=== PATIENT | female | born 1955 | race American Indian/Alaskan Native ===

== ENCOUNTER 2017-09-27 20:04 | Emergency (ER) | payer MEDICAID ==
[2017-09-27 20:58] VITALS: RESP 18
--- NOTE | 2017-09-27 21:09 | ED PDOC ---
Arrival/HPI - General Chief Complaint: ENT Problem Time Seen by Provider: 09/27/17 20:11 Historian: Patient - History of Present Illness Narrative History of Present Illness (Text): 09/27/17 21:00 Batool De La Cruz is a 62 year old female, whose past medical history includes hypertension, renal insufficiency, and diabetes, who presents to the ED complaining of fever and chills for the past few days. Patient also reports associated severe sore throat discomfort with difficulty swallowing today. Patient denies any shortness of breath, chest pain, nausea, vomiting, diarrhea, neck pain, headache, dizziness, or any other complaints. Time/Duration: < week (few days) Symptom Onset: Gradual Symptom Course: Unchanged Severity Level: Severe Activities at Onset: Light Context: Home Past Medical History - Provider Review Nursing Documentation Reviewed: Yes - Cardiac Hx Cardiac Disorders: Yes Hx Hypertension: Yes - Pulmonary Hx Respiratory Disorders: No - Neurological Hx Neurological Disorder: Yes Hx Transient Ischemic Attacks (TIA): Yes - HEENT Hx HEENT Disorder: Yes Hx Blind: Yes Hx Glaucoma: Yes - Renal Hx Renal Disorder: Yes Hx Renal Failure: Yes - Endocrine/Metabolic Hx Endocrine Disorders: Yes Hx Diabetes Mellitus Type 2: Yes - Hematological/Oncological Hx Blood Disorders: No - Integumentary Hx Dermatological Disorder: No - Musculoskeletal/Rheumatological Hx Musculoskeletal Disorders: Yes Hx Arthritis: Yes - Gastrointestinal Hx Gastrointestinal Disorders: No - Genitourinary/Gynecological Hx Genitourinary Disorders: No - Psychiatric Hx Psychophysiologic Disorder: No Hx Substance Use: No - Surgical History Hx Cholecystectomy: Yes Hx Eye Surgery: Yes Hx Hysterectomy: Yes Family/Social History - Physician Review Nursing Documentation Reviewed: Yes Family/Social History: Unknown Family HX Smoking Status: Never Smoked Hx Alcohol Use: No Hx Substance Use: No Allergies/Home Meds Allergies/Adverse Reactions: Allergies labetalol Allergy (Verified 09/27/17 20:15) NAUSEA Home Medications: Home Meds Medication Instructions Recorded Confirmed Carvedilol [Coreg] 1 tab PO DAILY 09/27/17 09/27/17 Chlorthalidone [Hygroton] 25 mg PO DAILY 09/27/17 09/27/17 Cholecalciferol (Vitamin D3) 1 tab PO DAILY 09/27/17 09/27/17 [Vitamin D3] Dorzolamide HCl/Timolol Maleat 2 drop LEFTEYE DAILY 09/27/17 09/27/17 [Dorzolamide-Timolol Eye Drops] Insulin Glargine,Hum.rec.anlog 20 unit SC DAILY 09/27/17 09/27/17 [Toujeo Solostar] Insulin Lispro [humALOG] See Protocol SC TID 09/27/17 09/27/17 Losartan [Cozaar] 100 mg PO DAILY 09/27/17 09/27/17 Oseltamivir Phosphate [Tamiflu] 1 cap PO DAILY 09/27/17 09/27/17 Sevelamer Carbonate [Renvela] 1 tab PO DAILY 09/27/17 09/27/17 Simvastatin [Zocor] 20 mg PO DAILY 09/27/17 09/27/17 Spironolactone [Aldactone] 100 mg PO DAILY 09/27/17 09/27/17 amLODIPine [Norvasc] 10 mg PO DAILY 09/27/17 09/27/17 Review of Systems - Physician Review All systems were reviewed & negative as marked: Yes - Review of Systems Constitutional: Fevers, Other (+chills) Eyes: Normal ENT: Sore Throat Respiratory: Normal. absent: SOB, Cough Cardiovascular: Normal. absent: Chest Pain Gastrointestinal: Normal. absent: Abdominal Pain, Diarrhea, Nausea, Vomiting Genitourinary Female: Normal. absent: Dysuria, Frequency, Hematuria, Urine Output Changes Musculoskeletal: Normal. absent: Back Pain, Neck Pain Skin: Normal. absent: Rash Neurological: Normal. absent: Headache, Dizziness Endocrine: Normal Hemo/Lymphatic: Normal Psychiatric: Normal Physical Exam Vital Signs Reviewed: Yes Vital Signs Temp Pulse Resp BP Pulse Ox 09/27/17 23:32 98.9 F 89 18 166/93 H 98 09/27/17 22:49 84 18 174/97 H 97 09/27/17 20:57 90 18 184/101 H 99 09/27/17 20:35 100.5 F H 95 H 20 200/94 H 98 09/27/17 20:22 100.5 F H 95 H 20 200/94 H 98 Temperature: Febrile Blood Pressure: Hypertensive Pulse: Regular Respiratory Rate: Normal Appearance: Positive for: Well-Appearing, Non-Toxic, Comfortable Pain Distress: None Mental Status: Positive for: Alert and Oriented X 3 - Systems Exam Head: Present: Atraumatic, Normocephalic Pupils: Present: PERRL, Sluggish, Non-Reactive, Pinpoint, Other Extroacular Muscles: Present: EOMI Conjunctiva: Present: Normal Ears: Present: Normal, NORMAL TM, Normal Canal. No: Erythema, TM Bulging, Fluid Mouth: Present: Moist Mucous Membranes Pharnyx: Present: ERYTHEMA (Minimal erythema to posterior pharynx). No: EXUDATE , TONSILS ENLARGED, Peritonsilar Swelling, Uvular Deviation, Muffled/Hoarse Voice, Strider, Soft Palate/Uvular Edema Nose (External): Present: Atraumatic Nose (Internal): Present: Normal Inspection Neck: Present: Normal Range of Motion. No: Meningeal Signs, MIDLINE TENDERNESS Respiratory/Chest: Present: Clear to Auscultation, Good Air Exchange. No: Respiratory Distress, Accessory Muscle Use Cardiovascular: Present: Regular Rate and Rhythm, Normal S1, S2. No: Murmurs Abdomen: Present: Normal Bowel Sounds. No: Tenderness, Distention, Peritoneal Signs Back: Present: Normal Inspection Upper Extremity: Present: Normal Inspection. No: Cyanosis, Edema Lower Extremity: Present: Normal Inspection. No: Edema Neurological: Present: GCS=15, CN II-XII Intact, Speech Normal Skin: Present: Warm, Dry, Normal Color. No: Rashes Psychiatric: Present: Alert, Oriented x 3, Normal Insight, Normal Concentration Medical Decision Making ED Course and Treatment: 09/27/17 21:00 Impression: 62 year old female c/o fever and chills for the past few days, severe sore throat discomfort today. Plan: -- CT Neck Soft Tissue -- EKG -- CXR -- Labs, VBG, blood cultures -- UA, urine cultures -- IV fluids -- Solu-medrol -- Cleocin -- Reassess and disposition 09/27/17 21:39 Reviewed EKG, NSR at 86 bpm. LVH. Non-specific ST/T wave changes. 09/27/17 22:35 Chest X-ray reviewed, shows no acute processes. 09/27/17 22:58 CT Neck Soft Tissue shows: Nasopharynx: There is mild swelling of the soft tissues of the posterior nasopharynx. Oropharynx: No significant tonsillar enlargement. Hypopharynx: No acute abnormality. Larynx: Normal epiglottis. Trachea: No acute abnormality. Retropharyngeal space: No acute abnormality. Submandibular/parotid glands: Glands are normal in size. Thyroid: No enlarged or calcified nodules. Bones/joints: Spondylosis is visualized at multiple cervical levels. Soft tissues: No acute swelling of the subcutaneous tissues of the neck. Vasculature: Suboptimal evaluation without intravenous contrast. Lymph nodes: Scattered small cervical lymph nodes are identified, without significant cervical lymphadenopathy. Sinuses: There is mild mucosal thickening and scattered ethmoid air cells. A mucus retention cyst or polyp is visualized within the right maxillary sinus. There is mild thickening of the left frontal sinus and left sphenoid sinus. Lung apices: Unremarkable as visualized. IMPRESSION: 1. There is mild swelling of the soft tissues of the posterior nasopharynx. Clinical correlation is recommended. 2. Paranasal sinus disease is noted above. 3. Incidental/non-acute findings are described above. 09/27/17 23:15 On re-evaluation, patient feels better and is in no acute distress. I have discussed the results and plan with the patient, who expresses understanding. Patient in agreement with plan to be discharged home. Patient is stable for discharge. Patient was instructed to follow up with physician or return if symptoms worsen or new concerning symptoms arise. - Lab Interpretations Lab Results: 09/27/17 21:20 09/27/17 21:20 Lab Results 09/27/17 21:20: Sodium 138, Chloride 104, Potassium 4.4, Carbon Dioxide 22, Anion Gap 17, BUN 30 H, Creatinine 3.1 H, Est GFR ( Amer) 19, Est GFR ( Non-Af Amer) 15, Random Glucose 278 H, Calcium 9.1, Total Bilirubin 0.3, AST 21 , ALT 30, Alkaline Phosphatase 131 H, Total Protein 8.4 H, Albumin 4.1, Globulin 4.3, Albumin/Globulin Ratio 1.0 L 09/27/17 21:20: pO2 46, VBG pH 7.35, VBG pCO2 42.0, VBG HCO3 23.2, VBG Total CO2 24.5, VBG O2 Sat (Calc) 85.5 H, VBG Base Excess -2.4 L, VBG Potassium 4.3, Sodium 140.0, Chloride 106.0, Glucose 296 H, Lactate 1.0, FiO2 21.0, Venous Blood Potassium 4.3 09/27/17 21:20: PT 11.7, INR 1.07, APTT 22.7 L 09/27/17 21:20: WBC 9.7, RBC 3.86, Hgb 10.4 L, Hct 31.0 L, MCV 80.3, MCH 26.9, MCHC 33.5, RDW 12.0, Plt Count 246, MPV 12.3 H, Gran % 68.1 H, Lymph % (Auto) 24.1, Rosebud % (Auto) 5.3, Eos % (Auto) 2.3, Baso % (Auto) 0.2, Gran # 6.61 H, Lymph # 2.3, Rosebud # 0.5, Eos # 0.2, Baso # 0.02 I have reviewed the lab results: Yes - RAD Interpretation Radiology Orders: 09/27/17 21:09 CHEST ONE VIEW [RAD] Stat 09/27/17 21:58 NECK SOFT TISSUE W/O CONTRAST [CT] Stat Twist Tester: ED Physician, Radiologist - EKG Interpretation Interpreted by ED Physician: Yes Type: 12 lead EKG - Medication Orders Current Medication Orders: Discontinued Medications Sodium Chloride (Sodium Chloride 0.9%) 1,000 mls @ 150 mls/hr IV .[id number] [place] Last Admin: 09/27/17 21:36 Dose: 150 mls/hr eMAR Start Stop Document 09/27/17 21:36 IT (Rec: 09/27/17 21:36 IT [id number]) Intravenous Solution Start Date 09/27/17 Start Time 21:36 Clindamycin Phosphate 600 mg/ (Sodium Chloride) 54 mls @ 108 mls/hr IV STAT STA PRN Reason: Protocol Stop: 09/27/17 21:41 Last Admin: 09/27/17 21:47 Dose: 108 mls/hr eMAR Start Stop Document 09/27/17 21:47 IT (Rec: 09/27/17 21:47 IT [id number]) Intravenous Solution Start Date 09/27/17 Start Time 21:47 End Date 09/27/17 End time 22:15 Total Infusion Time 28 Ibuprofen (Motrin Oral Susp) 400 mg PO STAT STA Stop: 09/27/17 23:19 Last Admin: 09/27/17 23:25 Dose: 400 mg MAR Pain/Vitals Document 09/27/17 23:25 IT (Rec: 09/27/17 23:26 IT [id number]) Pain Reassessment Is This A Pain ReAssessment? No Sleep Is patient sleeping during reassessment? No Presence of Pain Presence of Pain Yes Pain Scale Used Pain Scale Used Numeric Methylprednisolone (Solu-Medrol) 125 mg IVP ONCE ONE Stop: 09/27/17 21:13 Last Admin: 09/27/17 21:36 Dose: 125 mg IVP Administration Document 09/27/17 21:36 IT (Rec: 09/27/17 21:36 IT [id number]) Charges for Administration # of IVP Administrations 1 - Scribe Statement The provider has reviewed the documentation as recorded by the Scribe Meenu Zambrano All medical record entries made by the Scribe were at my direction and personally dictated by me. I have reviewed the chart and agree that the record accurately reflects my personal performance of the history, physical exam, medical decision making, and the department course for this patient. I have also personally directed, reviewed, and agree with the discharge instructions and disposition. Disposition/Present on Arrival - Present on Arrival Any Indicators Present on Arrival: No History of DVT/PE: No History of Uncontrolled Diabetes: Yes Urinary Catheter: No History of Decub. Ulcer: No History Surgical Site Infection Following: None - Disposition Have Diagnosis and Disposition been Completed?: Yes Diagnosis: Tonsillitis Disposition: HOME/ ROUTINE Disposition Time: 23:15 Patient Plan: Discharge Condition: GOOD Discharge Instructions (ExitCare): Tonsillitis (ED) Additional Instructions: Drink cool liquids not hot/take meds as prescribed/follow up with your doctor this week Prescriptions: Amoxicillin [Amoxicillin 250mg/5ml Susp] 10 ml PO TID #300 ml Referrals: Jerry Gan MD [Primary Care Provider] - Follow up with primary Forms: Stampt (Wallisian)
[2017-09-27] MEDS ORDERED: Sodium Chloride 0.9% 1,000 ML IV SCH (21:15)
[2017-09-27] MEDS ORDERED: Clindamycin 150 mg/mL Inj ONE ×2 (21:35→21:36)
[2017-09-27 21:45] LABS: VENOUS BLOOD GAS BASE EXCESS -2.4 mmol/L (0.0-2.0); VENOUS BLOOD GAS PO2 46 mm/Hg (30-55); VENOUS BLOOD PH 7.35 (7.32-7.43)
[2017-09-27 21:48] LABS: BASO # 0.02 K/mm3 (0.0-2.0); BASO % 0.2 % (0.0-3.0); EOS # 0.2 (0.0-0.7); EOS % 2.3 % (1.5-5.0); GRAN # 6.61 (1.4-6.5); GRAN % 68.1 % (50.0-68.0); HEMOGLOBIN 10.4 g/dL (12.0-16.0); LYMPH # 2.3 (1.2-3.4); LYMPH % 24.1 % (22.0-35.0); MEAN CELL VOLUME 80.3 fl (80.0-105.0); MEAN CORPUSCULAR HEMOGLOBIN 26.9 pg (25.0-35.0); MEAN CORPUSCULAR HGB CONC 33.5 g/dl (31.0-37.0); MEAN PLATELET VOLUME 12.3 fl (7.0-11.0); MONO # 0.5 (0.1-0.6); MONO % 5.3 % (1.0-6.0); RBC 3.86 10^6/uL (3.5-6.1); WHITE BLOOD COUNT 9.7 10^3/ul (4.5-11.0)
[2017-09-27 21:53] LABS: ALBUMIN 4.1 g/dL (3.0-4.8); CALCIUM 9.1 mg/dL (8.4-10.5)
[2017-09-27 21:56] LABS: INR 1.07 (0.93-1.08); PARTIAL THROMBOPLASTIN TIME 22.7 Seconds (25.1-36.5); PROTHROMBIN TIME 11.7 SECONDS (9.4-12.5)
--- NOTE | 2017-09-27 22:54 | CT ---
EXAM: CT Neck Without Intravenous Contrast EXAM DATE/TIME: 09/27/2017 9:58 PM CLINICAL HISTORY: The patient age is 62 years old and is female; Signs and symptoms; Dysphagia / difficulty swallowing; Additional info: Sore throat/diff. Swallowing/hx. Renal insuff Facility exam id and description: Ct necks neck soft tissue w/o contrast TECHNIQUE: Axial computed tomography images of the neck without intravenous contrast. All CT scans at this facility use one or more dose reduction techniques, viz.: automated exposure control; ma/kV adjustment per patient size (including targeted exams where dose is matched to indication; i.e. head); or iterative reconstruction technique. Coronal and sagittal reformatted images were created and reviewed. COMPARISON: No relevant prior studies available. FINDINGS: Nasopharynx: There is mild swelling of the soft tissues of the posterior nasopharynx. Oropharynx: No significant tonsillar enlargement. Hypopharynx: No acute abnormality. Larynx: Normal epiglottis. Trachea: No acute abnormality. Retropharyngeal space: No acute abnormality. Submandibular/parotid glands: Glands are normal in size. Thyroid: No enlarged or calcified nodules. Bones/joints: Spondylosis is visualized at multiple cervical levels. Soft tissues: No acute swelling of the subcutaneous tissues of the neck. Vasculature: Suboptimal evaluation without intravenous contrast. Lymph nodes: Scattered small cervical lymph nodes are identified, without significant cervical lymphadenopathy. Sinuses: There is mild mucosal thickening and scattered ethmoid air cells. A mucus retention cyst or polyp is visualized within the right maxillary sinus. There is mild thickening of the left frontal sinus and left sphenoid sinus. Lung apices: Unremarkable as visualized. IMPRESSION: 1. There is mild swelling of the soft tissues of the posterior nasopharynx. Clinical correlation is recommended. 2. Paranasal sinus disease is noted above. 3. Incidental/non-acute findings are described above.
[2017-09-27 23:34] VITALS: BP 166/93; PULSE 89; TEMP 98.9; O2SAT 98
--- NOTE | 2017-09-28 08:14 | RAD ---
PROCEDURE: CHEST RADIOGRAPH, 1 VIEW HISTORY: Sepsis Patient COMPARISON: None available. FINDINGS: LUNGS: Clear. PLEURA: No pneumothorax or pleural fluid seen. CARDIOVASCULAR: Normal. OSSEOUS STRUCTURES: No significant abnormalities. VISUALIZED UPPER ABDOMEN: Normal. OTHER FINDINGS: None. IMPRESSION: No active disease.
--- NOTE | 2017-09-28 17:56 | CARD ---
APPROVED REPORT EKG Measurement Heart [id number] <Conclusion> Normal sinus rhythm Minimal voltage criteria for LVH, may be normal variant T wave abnormality, consider lateral ischemia Abnormal ECG
== END 2017-09-27 23:34 | disposition home or self-care (01) ==
LOC: ED 20:04
DX: J03.90 Acute tonsillitis, unspecified (principal); I10 Essential (primary) hypertension
CPT/HCPCS: 70490; 71010; 80053; 82803; 85025; 85610; 85730; 87040; 93005; 96374; 99283; J2930; J7040

== ENCOUNTER 2018-02-27 21:53 | Emergency (ER) | payer MEDICAID ==
[2018-02-27 21:56] VITALS: BMI 26.6
[2018-02-27 22:26] LABS: BASO # 0.02 K/mm3 (0.0-2.0); BASO % 0.2 % (0.0-3.0); EOS # 0.2 (0.0-0.7); EOS % 2.5 % (1.5-5.0); GRAN # 4.77 (1.4-6.5); GRAN % 58.9 % (50.0-68.0); HEMOGLOBIN 10.7 g/dL (12.0-16.0); LYMPH # 2.8 (1.2-3.4); LYMPH % 34.9 % (22.0-35.0); MEAN CELL VOLUME 77.4 fl (80.0-105.0); MEAN CORPUSCULAR HGB CONC 33.5 g/dl (31.0-37.0); MONO # 0.3 (0.1-0.6); MONO % 3.5 % (1.0-6.0); RBC 4.12 10^6/uL (3.5-6.1); RED CELL DISTRIBUTION WIDTH 12.1 % (11.5-14.5); WHITE BLOOD COUNT 8.1 10^3/ul (4.5-11.0)
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
[2018-02-27 22:37] LABS: INR 0.96 (0.93-1.08); PARTIAL THROMBOPLASTIN TIME 24.3 Seconds (25.1-36.5); PROTHROMBIN TIME 10.9 SECONDS (9.4-12.5)
[2018-02-27 22:39] LABS: ALB/GLOB RATIO 1.1 (1.1-1.8); ALBUMIN 4.1 g/dL (3.0-4.8); CALCIUM 9.1 mg/dL (8.4-10.5)
[2018-02-27 22:50] LABS: TROPONIN I 0.02 ng/mL
[2018-02-27 22:57] LABS: CK-MB 4.4 ng/mL (0.0-3.6)
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
[2018-02-28 01:11] VITALS: BP 142/86; PULSE 88; RESP 20; TEMP 98.9; O2SAT 100
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
--- NOTE | 2018-02-28 11:18 | RAD ---
HISTORY: chest pain COMPARISON: 09/27/2017 FINDINGS: LUNGS: No active pulmonary disease. PLEURA: No significant pleural effusion identified, no pneumothorax apparent. CARDIOVASCULAR: Normal. OSSEOUS STRUCTURES: No significant abnormalities. VISUALIZED UPPER ABDOMEN: Normal. OTHER FINDINGS: None. IMPRESSION: No active disease.
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
--- NOTE | 2018-02-28 16:52 | CARD ---
APPROVED REPORT EKG Measurement Heart [id number] <Conclusion> Normal sinus rhythm Possible Left atrial enlargement Left ventricular hypertrophy T wave abnormality, consider lateral ischemia Prolonged QT Abnormal ECG
== END 2018-02-28 01:10 | disposition home or self-care (01) ==
LOC: ED 21:53
DX: S16.1XXA Strain of muscle, fascia and tendon at neck level, initial encounter (principal); S39.012A Strain of muscle, fascia and tendon of lower back, initial encounter; V49.9XXA Car occupant (driver) (passenger) injured in unspecified traffic accident, initial encounter; R07.9 Chest pain, unspecified; E11.9 Type 2 diabetes mellitus without complications; I12.9 Hypertensive chronic kidney disease with stage 1 through stage 4 chronic kidney disease, or unspecified chronic kidney disease; N18.4 Chronic kidney disease, stage 4 (severe); E78.5 Hyperlipidemia, unspecified